=== PATIENT | male | born 2000 | race Two or more races ===

== ENCOUNTER 2021-03-24 13:28 | Emergency (ER) | payer OTHER ==
[~2021-03-24] VITALS: Ht 180.3 cm; Wt 85.3 kg
[2021-03-24] MEDS ORDERED: AFRIN15 ML (15:28)
[2021-03-24] MEDS ORDERED: MEDROLPACK PO (17:55)
[2021-03-24] MEDS ORDERED: PEPCID AC20 MG PO (17:55)
== END 2021-03-24 18:18 | disposition home or self-care (01) ==
LOC: EMR PED 13:28
DX: R29.810 Facial weakness (principal); U07.1 COVID-19

== ENCOUNTER 2021-12-19 19:07 | Emergency (ER) | payer OTHER ==
[~2021-12-19] VITALS: Ht 180.3 cm; Wt 81.6 kg
[~2021-12-19 19:07] MED LIST: AFRIN15 ML; MEDROLPACK PO; PEPCID AC20 MG PO
[2021-12-19] MEDS ORDERED: ZITHROMAX200 MG PO (23:45)
== END 2021-12-19 23:55 | disposition home or self-care (01) ==
LOC: ER 19:07
DX: R59.0 Localized enlarged lymph nodes (principal); J39.2 Other diseases of pharynx